=== PATIENT | male | born 1945 | race African-American/Black ===

== ENCOUNTER 2017-05-29 22:37 | Inpatient (IN) | payer SELFPAY ==
[2017-05-29] MEDS ORDERED: XOPENEX IH ONE ×2 (22:56→22:59)
[2017-05-29 23:12] LABS: Basophils % (Auto) 0.5 % (0.0-1.8); Eosinophils % (Auto) 5.3 % (0.0-4.3); Hematocrit 43.8 % (35.5-45.6); Hemoglobin 13.7 gm/dl (11.8-15.2); Mean Corpuscular HGB Conc 31 % (32-34); Platelet Count 202 K/mm3 (140-440); Red Cell Distribution Width 16.6 % (13.2-15.2); White Blood Count 11.3 K/mm3 (4.5-11.0)
[2017-05-29 23:16] LABS: Mean Corpuscular Hemoglobin 21 pg (28-32); Mean Corpuscular Volume 68 fl (84-94)
[2017-05-29] MEDS ORDERED: MAGNESIUM SULFATE 2GM/50ML 2 GM/50 ML BAG IV ONE (23:16)
[2017-05-29 23:22] LABS: INR 1.03 (0.87-1.13)
[2017-05-29 23:25] LABS: Creatine Kinase MB 20.2 ng/mL (0.0-4.0)
[2017-05-29 23:27] LABS: Alanine Aminotransferase 30 units/L (7-56); Albumin 4.3 g/dL (3.9-5); Albumin/Globulin Ratio 1.3 %; Alkaline Phosphatase 64 units/L (35-129); Anion Gap 17 mmol/L; BUN/Creatinine Ratio 15.71; Blood Urea Nitrogen 11 mg/dL (9-20); Calcium 8.9 mg/dL (8.4-10.2); Carbon Dioxide 29 mmol/L (22-30); Chloride 87.9 mmol/L (98-107); Creatine Kinase 516 units/L (55-170); Glucose 134 mg/dL (75-100); Potassium 4.1 mmol/L (3.6-5.0); Sodium 130 mmol/L (137-145); Total Protein 7.7 g/dL (6.3-8.2)
[2017-05-30] MEDS ORDERED: LOVENOX SUB-Q ONE (00:30)
[2017-05-30] MEDS ORDERED: XOPENEX IH ONE (00:55)
[2017-05-30] MEDS ORDERED: ATROVENT IH ONE (00:55)
--- NOTE | 2017-05-30 01:00 | Emergency Department Report ---
ED Shortness of Breath HPI - General Chief Complaint: Dyspnea/Respdistress Stated Complaint: MIK Time Seen by Provider: 05/29/17 22:53 Source: patient, EMS Mode of arrival: Stretcher Limitations: Language Barrier - History of Present Illness Initial Comments: 71-year-old male with no known past medical history presents last complaining of shortness of breath 1 month worsened today. Patient is a smoker but states he quit 2 days ago when symptoms worsened. Patient lives in [place] but he has been in the [place] area 1 month. Shortness of breath actually began prior to arrival to [place] 1 month ago that worsened over the last several days. Patient was actually at the airport preparing to fly out tonight, there was a 2 hour delay in patient's breathing worsened and therefore he came to the hospital. Patient received albuterol 10 mg and one 25 mg of Solu-Medrol prior to arrival with some improvement but continues to have audible wheezing upon arrival. Cough occasionally productive of phlegm reported. No chest pain, calf tenderness/edema, or fever reported. Denies any previously diagnosed heart problems. - Related Data Allergies Allergy/AdvReac Type Severity Reaction Status Date / Time No Known Allergies Allergy Unverified 05/29/17 23:10 ED Review of Systems ROS: Stated complaint: MIK Other details as noted in HPI Comment: All other systems reviewed and negative Other: Constitutional: No fevers chills Eyes: No eye pain visual changes ENT: No ear pain or throat pain Neck: Denies pain Respiratory: As per HPI Cardiovascular: Denies chest pain, palpitations, syncope GI: Denies abdominal pain, nausea, vomiting, diarrhea : Denies dysuria Musculoskeletal: Denies back pain Skin: Denies rash, lesions, erythema Neurologic: Denies headache, numbness, weakness Psychiatric: Denies suicidal ideation, hallucinations ED Past Medical Hx - Past Medical History Previous Medical History?: Yes Hx Heart Attack/AMI: Yes (States he does not know what heart disease) - Surgical History Past Surgical History?: No - Social History Smoking Status: Current Every Day Smoker ED Physical Exam - General Limitations: Language Barrier - Other Other exam information: General: No limitations, patient is alert in no acute distress Head exam: Atraumatic, normocephalic Eyes exam: Normal appearance, pupils equal reactive to light, extraocular movements intact ENT: Moist mucous membrane, normal oropharynx Neck exam: Normal inspection, full range of motion, no meningismus nontender Respiratory exam: Tachypnea, expiratory wheezing, no accessory muscle use Cardiovascular: Tachycardic irregular rhythm Abdomen: Soft, nondistended, and nontender, with normal bowel sounds, no rebound, or guarding Extremity: Full range of motion normal inspection no deformity, no calf tenderness or edema Back: Normal Inspection, full range of motion, no tenderness Neurologic: Alert, oriented x3, cranial nerves intact, no motor or sensory deficit Psychiatric: normal affect, normal mood Skin: Warm, dry, intact ED Course Vital Signs 05/29/17 05/29/17 05/29/17 22:42 22:50 23:00 Temperature Pulse Rate 126 H 109 H 122 H Pulse Rate [ Anterior Bilateral Throughout] Respiratory 31 H 30 H 32 H Rate Respiratory Rate [Anterior Bilateral Throughout] Blood Pressure 140/81 125/76 O2 Sat by Pulse 93 93 Oximetry 05/29/17 05/29/17 05/29/17 23:03 23:10 23:20 Temperature 98 F Pulse Rate 124 H 120 H Pulse Rate [ 131 H 124 H Anterior Bilateral Throughout] Respiratory 32 H 28 H Rate Respiratory 28 H 31 H Rate [Anterior Bilateral Throughout] Blood Pressure 125/76 134/68 O2 Sat by Pulse 93 96 Oximetry 05/29/17 05/29/17 05/29/17 23:30 23:40 23:50 Temperature Pulse Rate 141 H 146 H 131 H Pulse Rate [ Anterior Bilateral Throughout] Respiratory 17 22 16 Rate Respiratory Rate [Anterior Bilateral Throughout] Blood Pressure 125/76 125/76 90/41 O2 Sat by Pulse 93 92 92 Oximetry 05/30/17 05/30/17 05/30/17 00:00 00:10 00:11 Temperature Pulse Rate 130 H 160 H 123 H Pulse Rate [ Anterior Bilateral Throughout] Respiratory 19 26 H Rate Respiratory Rate [Anterior Bilateral Throughout] Blood Pressure 122/81 122/81 O2 Sat by Pulse 89 92 Oximetry 05/30/17 05/30/17 05/30/17 00:16 00:20 00:30 Temperature Pulse Rate 139 H 114 H 115 H Pulse Rate [ Anterior Bilateral Throughout] Respiratory 23 25 H 29 H Rate Respiratory Rate [Anterior Bilateral Throughout] Blood Pressure 132/78 132/78 121/69 O2 Sat by Pulse 91 92 98 Oximetry - Reevaluation(s) Reevaluation #1: 05/30/17 00:59 Patient had received a albuterol 10 mg, Solu-Medrol 125 mg, and Xopenex 2.5 prior to my evaluation with improvement but persistent wheezing ED Medical Decision Making - Lab Data Result diagrams: 05/29/17 23:00 05/29/17 23:00 Lab Results 05/29/17 05/29/17 05/29/17 Range/Units 23:00 23:00 23:00 WBC 11.3 H (4.5-11.0) K/mm3 RBC 6.40 H (3.65-5.03) M/mm3 Hgb 13.7 (11.8-15.2) gm/dl Hct 43.8 (35.5-45.6) % MCV 68 L (84-94) fl MCH 21 L (28-32) pg MCHC 31 L (32-34) % RDW 16.6 H (13.2-15.2) % Plt Count 202 (140-440) K/mm3 Lymph % (Auto) 18.7 (13.4-35.0) % [place] % (Auto) 10.4 H (0.0-7.3) % Eos % (Auto) 5.3 H (0.0-4.3) % Baso % (Auto) 0.5 (0.0-1.8) % Lymph # 2.1 (1.2-5.4) K/mm3 [place] # 1.2 H (0.0-0.8) K/mm3 Eos # 0.6 H (0.0-0.4) K/mm3 Baso # 0.1 (0.0-0.1) K/mm3 Seg Neutrophils % 65.1 (40.0-70.0) % Seg Neutrophils # 7.4 (1.8-7.7) K/mm3 PT 13.4 (12.2-14.9) Sec. INR 1.03 (0.87-1.13) Sodium 130 L (137-145) mmol/L Potassium 4.1 (3.6-5.0) mmol/L Chloride 87.9 L (98-107) mmol/L Carbon Dioxide 29 (22-30) mmol/L Anion Gap 17 mmol/L BUN 11 (9-20) mg/dL Creatinine 0.7 L (0.8-1.5) mg/dL Estimated GFR > 60 ml/min BUN/Creatinine Ratio 15.71 % Glucose 134 H (75-100) mg/dL Calcium 8.9 (8.4-10.2) mg/dL Total Bilirubin 0.50 (0.1-1.2) mg/dL AST 35 (5-40) units/L ALT 30 (7-56) units/L Alkaline Phosphatase 64 (35-129) units/L Total Creatine Kinase 516 H (55-170) units/L CK-MB (CK-2) Rel Index 3.9 (0-4) Troponin T < 0.010 (0.00-0.029) ng/mL Total Protein 7.7 (6.3-8.2) g/dL Albumin 4.3 (3.9-5) g/dL Albumin/Globulin Ratio 1.3 % ddimer neg - EKG Data -: EKG Interpreted by Me (A. fib rate 111, no ST elevation NE or T inversion) - EKG Data 05/30/17 01:00 repeat EKG shows A. fib rate 113 - Radiology Data Radiology results: image reviewed (chest x-ray: No acute finding) - Medical Decision Making Meds ordered in the ED: Xopenex, Atrovent, magnesium 2 g, azithromycin to cover for acute bronchitis/possible atypical pneumonia, and Lovenox 1 mg per KG subcutaneous for new onset A. fib. Patient will require admission to the hospital for the treatment of respiratory symptoms. ddimer negative - Differential Diagnosis new-onset A. fib, M a T, sinus tach, pneumonia, bronchitis, CHF Critical Care Time: No Critical care attestation.: If time is entered above; I have spent that time in minutes in the direct care of this critically ill patient, excluding procedure time. ED Disposition Clinical Impression: Acute bronchitis, Smoker, New onset a-fib, Hypoxia Disposition: OP ADMIT IP TO THIS HOSP Is pt being admited?: Yes Condition: Stable Time of Disposition: 01:05 (Dr Solano/hosp)
[2017-05-30] MEDS ORDERED: ZITHROMAX 500 MG in NACL 0.9% 250ML 250 ML IV ONE (01:03)
--- NOTE | 2017-05-30 01:25 | History and Physical Report ---
History of Present Illness Date of examination: 05/30/17 Date of admission: 05/30/17 Chief complaint: shortness of breath, wheezing History of present illness: Patient is 71 yo presents with shortness of breath, wheezing. He denies chest pain. He is diagnosed with acute bronchitis, hyponatremia. He does not have diagnosis of COPD but has smoked for 50 years so may have COPD. He was put on Oxygen and will admit for management. Past History Past Medical History: No medical history Past Surgical History: No surgical history Social history: no significant social history, smoking. denies: alcohol abuse Family history: no significant family history Medications and Allergies Allergies Allergy/AdvReac Type Severity Reaction Status Date / Time No Known Allergies Allergy Unverified 05/29/17 23:10 Active Meds: Active Medications Azithromycin 500 mg/ Sodium (Chloride) 250 mls @ 250 mls/hr IV ONCE.ED ONE Stop: 05/30/17 02:02 Review of Systems All systems: negative (No fever, no chest pain, no abd pain. All other systems reviewed and are negative) Exam - Physical Exam Narrative exam: Gen appearance: not in acute distress, lying in bed HEENT: normocephalic, atraumatic Neck:supple, no JVD, Lungs: Bilateral rhonchi, wheezing Heart :S1 and S2 regular, no murmurs, rubs or gallop Abdomen: Soft, non tender, normal bowel sounds Extremities :no edema no clubbing or cyanosis Neuro: Awake, alert oriented 3, normal speech,no focal neurological signs Psych: normal mood - Constitutional Vitals: Temp Pulse Resp BP Pulse Ox 98 F 113 H 18 124/70 96 05/29/17 23:10 05/30/17 01:10 05/30/17 01:20 05/30/17 01:10 05/30/17 01:20 Results - Labs CBC & Chem 7: 05/29/17 23:00 05/29/17 23:00 Labs: Abnormal lab results 05/29/17 05/29/17 Range/Units 23:00 23:00 WBC 11.3 H (4.5-11.0) K/mm3 RBC 6.40 H (3.65-5.03) M/mm3 MCV 68 L (84-94) fl MCH 21 L (28-32) pg MCHC 31 L (32-34) % RDW 16.6 H (13.2-15.2) % [place] % (Auto) 10.4 H (0.0-7.3) % Eos % (Auto) 5.3 H (0.0-4.3) % [place] # 1.2 H (0.0-0.8) K/mm3 Eos # 0.6 H (0.0-0.4) K/mm3 Sodium 130 L (137-145) mmol/L Chloride 87.9 L (98-107) mmol/L Creatinine 0.7 L (0.8-1.5) mg/dL Glucose 134 H (75-100) mg/dL Total Creatine Kinase 516 H (55-170) units/L Assessment and Plan Acute respiratory failure due to acute bronchitis and poss COPD(undiagnosed). Admit to tele. Oxygen supplementation. Resp assess and treat Acute bronchitis. solu-medrol, Duoneb Q 6h scheduled. Azithromycin Hyponatremia. Start iv fluid. Repeat BMP DVT prophylaxis with Lovenox Full code status.
[2017-05-30] MEDS ORDERED: DULCOLAX PR PRN (01:53)
[2017-05-30] MEDS ORDERED: TYLENOL PO PRN (01:53)
[2017-05-30] MEDS ORDERED: PROVENTIL IH PRN (01:53)
[2017-05-30] MEDS ORDERED: ZOFRAN IV PRN (01:53)
[2017-05-30] MEDS ORDERED: MILK OF MAGNESIA PO PRN (01:53)
[2017-05-30] MEDS ORDERED: MORPHINE IV PRN (01:53)
[2017-05-30] MEDS ORDERED: NACL 0.9% 1000 ML 1,000 ML IV SCH (02:00)
[2017-05-30] MEDS: CARDIZEM PO SCH ×5 (02:36→21:29)
[2017-05-30] MEDS: PULMICORT IH SCH ×3 (03:53→21:05)
[2017-05-30] MEDS: DUONEB *Not for PRN Use IH SCH ×4 (03:53→21:05)
--- NOTE | 2017-05-30 09:13 | XRay Report ---
Single view chest: History: Shortness of breath. Findings: Normal cardiomediastinal silhouette. Trachea is midline. No consolidation, pneumothorax or pleural effusion. Impression: No acute cardiopulmonary findings.
[2017-05-30 09:39] LABS: Anion Gap 18 mmol/L; BUN/Creatinine Ratio 14.28; Blood Urea Nitrogen 10 mg/dL (9-20); Calcium 8.9 mg/dL (8.4-10.2); Carbon Dioxide 30 mmol/L (22-30); Chloride 93.9 mmol/L (98-107); Glucose 171 mg/dL (75-100); Sodium 137 mmol/L (137-145)
[2017-05-30] MEDS ORDERED: COREG PO SCH (10:00)
[2017-05-30] MEDS ORDERED: LOVENOX SUB-Q SCH (10:00)
[2017-05-30] MEDS: LOVENOX SUB-Q SCH ×2 (11:20→21:27)
[2017-05-30] MEDS: ZITHROMAX PO SCH (11:22)
[2017-05-30] MEDS: PEPCID PO SCH ×2 (11:22→21:28)
--- NOTE | 2017-05-30 11:56 | Consultation ---
History of Present Illness Consult date: 05/30/17 Requesting physician: EVETTE AMADOR Consult reason: atrial fibrillation History of present illness: The patient presents with onset of shortness of breath yesterday as well as left facial numbness. He denies palpitations or dizziness. At presentation, he was noted to be in rapid atrial fibrillation. He has no prior history of such. His sodium level was 130 which has improved with IV fluids. His d-dimer level was unremarkable. Thyroid profile is normal. Past History Past Medical History: No medical history Past Surgical History: No surgical history Social history: (with no children), smoking. denies: alcohol abuse Family history: denies: CAD Medications and Allergies Allergies Allergy/AdvReac Type Severity Reaction Status Date / Time No Known Allergies Allergy Unverified 05/29/17 23:10 Active Meds: Active Medications Acetaminophen (Tylenol) 650 mg PO Q4H PRN PRN Reason: Pain MILD(1-3)/Fever >100.5/HENRY Albuterol (Proventil) 2.5 mg IH Q3HRT PRN PRN Reason: Shortness Of Breath Albuterol/Ipratropium (Duoneb *Not For Prn Use*) 1 ampul IH Q6HRT [facility] Last Admin: 05/30/17 07:53 Dose: 1 ampul Azithromycin (Zithromax) 500 mg PO QDAY [facility] Last Admin: 05/30/17 11:22 Dose: 500 mg Bisacodyl (Dulcolax) 10 mg OR QDAY PRN PRN Reason: Constipation unrelieved by MOM Budesonide (Pulmicort) 0.5 mg IH Q12HRT [facility] Last Admin: 05/30/17 07:53 Dose: 0.5 mg Carvedilol (Coreg) 3.125 mg PO BID [facility] Last Admin: 05/30/17 11:21 Dose: 3.125 mg Diltiazem HCl (Cardizem) 60 mg PO Q6H [facility] Last Admin: 05/30/17 11:21 Dose: 30 mg Enoxaparin Sodium (Lovenox) 70 mg 1 mg/kg (70 mg) SUB-Q Q12HR [facility] Last Admin: 05/30/17 11:20 Dose: 70 mg Famotidine (Pepcid) 20 mg PO BID [facility] Last Admin: 05/30/17 11:22 Dose: 20 mg Sodium Chloride (Nacl 0.9% 1000 Ml) 1,000 mls @ 75 mls/hr IV DIRECT [facility] Last Admin: 05/30/17 04:00 Dose: 75 mls/hr Magnesium Hydroxide (Milk Of Magnesia) 30 ml PO Q4H PRN PRN Reason: Constipation Methylprednisolone Sodium Succinate (Solu-Medrol) 80 mg IV Q8H [facility] Last Admin: 05/30/17 02:36 Dose: 80 mg Morphine Sulfate (Morphine) 2 mg IV Q4H PRN PRN Reason: Pain, Moderate (4-6) Last Admin: 05/30/17 09:13 Dose: 2 mg Ondansetron HCl (Zofran) 4 mg IV Q6H PRN PRN Reason: nausea or vomiting Last Admin: 05/30/17 09:13 Dose: 4 mg Review of Systems Constitutional: no fever, no chills Ears, nose, mouth and throat: no ear pain, no ear discharge, no sore throat Cardiovascular: shortness of breath, no chest pain, no orthopnea, no palpitations, no edema, no lightheadedness Respiratory: cough, shortness of breath, no hemoptysis Gastrointestinal: no abdominal pain, no nausea, no vomiting, no diarrhea, no constipation Genitourinary Male: no dysuria, no urinary frequency Rectal: no pain, no bleeding Musculoskeletal: no neck stiffness, no neck pain, no myalgias Integumentary: no rash, no pruritis Neurological: numbness, no weakness, no headaches Endocrine: no cold intolerance, no heat intolerance Hematologic/Lymphatic: no easy bruising, no easy bleeding Allergic/Immunologic: wheezing, no urticaria Physical Examination Vital Signs Last Vital Signs Temp 97.9 F 05/30/17 08:00 Pulse 106 H 05/30/17 08:00 Resp 20 05/30/17 08:00 BP 124/61 05/30/17 08:00 Pulse Ox 92 05/30/17 10:22 General appearance: no acute distress HEENT: Positive: EOMI, Normocephaly, Mucus Membranes Moist Neck: Positive: neck supple, trachea midline Cardiac: Positive: Reg Rate and Rhythm, S1/S2 Lungs: Positive: Wheezes, Rhonchi Neuro: Positive: Grossly Intact Abdomen: Positive: Soft, Active Bowel Sounds. Negative: Tender Skin: Positive: Clear. Negative: Rash Musculoskeletal: Normal Range of Motion Extremities: Present: normal. Absent: edema Results 05/29/17 23:00 05/30/17 09:11 Comprehensive Metabolic Panel 05/30/17 Range/Units 09:11 Sodium 137 D (137-145) mmol/L Potassium 5.0 D (3.6-5.0) mmol/L Chloride 93.9 L (98-107) mmol/L Carbon Dioxide 30 (22-30) mmol/L BUN 10 (9-20) mg/dL Creatinine 0.7 L (0.8-1.5) mg/dL Glucose 171 H (75-100) mg/dL Calcium 8.9 (8.4-10.2) mg/dL - Imaging and Cardiology EKG: image reviewed EKG interpretations - Telemetry EKG Rhythm: Atrial Fibrillation (with RVR) - EKG Supraventricular dysrhythmia: atrial fibrillation Assessment and Plan Agree with Lee. I will try oral amiodarone for possible cardioversion. Parenteral anticoagulation for now. Obtain echocardiogram. - Patient Problems (1) Atrial fibrillation with rapid ventricular response Current Visit: Yes Status: Acute (2) New onset a-fib Current Visit: Yes Status: Acute (3) Acute bronchitis Current Visit: Yes Status: Acute Qualifiers: Bronchitis organism: B (4) Tobacco abuse Current Visit: Yes Status: Chronic
[2017-05-30] MEDS ORDERED: CORDARONE 150 MG in D5W 97 ML IV ONE (12:00)
--- NOTE | 2017-05-30 13:23 | Event Note ---
Date: 05/30/17 pt seen and examined. admitted this am with SOB and atrial fib. Will cont current Mx as dictated in H and P. started on amioderone drip to better control HR, will also increase the dose of cardizem and will add coreg. Will also reduce the dose of steroid.
[2017-05-30] MEDS: CORDARONE PO SCH ×3 (16:33→21:28)
[2017-05-31] MEDS: DUONEB *Not for PRN Use IH SCH ×4 (02:20→20:28)
[2017-05-31] MEDS: CARDIZEM PO SCH ×4 (05:57→22:29)
[2017-05-31] MEDS: PULMICORT IH SCH ×2 (08:42→20:28)
[2017-05-31] MEDS: LOVENOX SUB-Q SCH ×2 (10:24→21:18)
[2017-05-31] MEDS: PEPCID PO SCH ×2 (10:25→21:17)
[2017-05-31] MEDS: CORDARONE PO SCH ×3 (10:25→21:16)
[2017-05-31] MEDS: ZITHROMAX PO SCH (10:25)
--- NOTE | 2017-05-31 12:41 | Progress Note ---
Assessment and Plan Continue loading dose of amiodarone for now with the hope of possible pharmacologic cardioversion. Await echocardiogram. - Patient Problems (1) Atrial fibrillation with rapid ventricular response Current Visit: Yes Status: Acute (2) New onset a-fib Current Visit: Yes Status: Acute (3) Acute bronchitis Current Visit: Yes Status: Acute Qualifiers: Bronchitis organism: B (4) Tobacco abuse Current Visit: Yes Status: Chronic Subjective Date of service: 05/31/17 Principal diagnosis: New onset Afib with RVR, Acute bronchitis Interval history: He feels better today. He is now in atrial fibrillation with a controlled ventricular rate. Objective Vital Signs Last Vital Signs Temp 97.3 F L 05/31/17 05:08 Pulse 89 05/31/17 10:24 Resp 20 05/31/17 05:08 BP 110/58 05/31/17 10:24 Pulse Ox 88 05/31/17 10:00 - Physical Examination General: No Apparent Distress HEENT: Positive: EOMI, Normocephaly, Mucus Membranes Moist Neck: Positive: neck supple, trachea midline Cardiac: Positive: Irregularly Regular, S1/S2 Lungs: Positive: clear to auscultation Neuro: Positive: Grossly Intact Abdomen: Positive: Soft, Active Bowel Sounds. Negative: Tender Skin: Positive: Clear. Negative: Rash Musculoskeletal: Normal Range of Motion Extremities: Present: normal. Absent: edema - Imaging and Cardiology EKG: image reviewed
--- NOTE | 2017-05-31 14:55 | Progress Note ---
Assessment and Plan Acute respiratory failure - likely due to acute bronchitis and asthma exacerbation. - cont Oxygen supplementation. - increase the dose of solu-medrol, Duoneb Q 6h scheduled. - pt still symptomatic, will change abx to ceftriaxone Acute asthma exacerbation -solu-medrol, Duoneb Q 6h scheduled. - cont abx with ceftriaxone Hyponatremia. cont iv fluid. Atrial Fib with RVR - started on amioderone - cont cardizem - wait for 2d echo result - cont therapeutic dose of lovenox DVT prophylaxis with Lovenox Full code status. Subjective Date of service: 05/31/17 Principal diagnosis: New onset Afib with RVR, Acute bronchitis Interval history: Pt seen and examined c/o SOB and wheezing HR better controlled today Objective - Constitutional Vitals: Vital Signs - 12hr 05/31/17 05/31/17 05/31/17 05:08 05:57 08:42 Temperature 97.3 F L Pulse Rate 92 H 98 H Pulse Rate [ 83 Anterior Bilateral Throughout] Pulse Rate [ Right Radial] Respiratory 20 Rate Respiratory 20 Rate [Anterior Bilateral Throughout] Blood Pressure 102/59 O2 Sat by Pulse 91 94 Oximetry 05/31/17 05/31/17 05/31/17 08:52 10:00 10:24 Temperature Pulse Rate 82 89 Pulse Rate [ 88 Anterior Bilateral Throughout] Pulse Rate [ 89 Right Radial] Respiratory Rate Respiratory 20 Rate [Anterior Bilateral Throughout] Blood Pressure 110/58 O2 Sat by Pulse 88 Oximetry 05/31/17 05/31/17 05/31/17 14:07 14:17 14:46 Temperature Pulse Rate 88 Pulse Rate [ 82 80 Anterior Bilateral Throughout] Pulse Rate [ Right Radial] Respiratory 20 Rate Respiratory 20 20 Rate [Anterior Bilateral Throughout] Blood Pressure 125/63 O2 Sat by Pulse 94 Oximetry General appearance: Present: no acute distress, well-nourished - EENT Eyes: PERRL, EOM intact ENT: hearing intact, clear oral mucosa Ears: bilateral: normal - Neck Neck: supple, normal ROM - Respiratory Respiratory effort: normal Respiratory: bilateral: wheezing - Cardiovascular Heart Sounds: Present: S1 & S2. Absent: gallop, rub Extremities: pulses intact, No edema, normal color, Full ROM - Gastrointestinal General gastrointestinal: Present: soft, non-tender, non-distended, normal bowel sounds - Integumentary Integumentary: clear, warm, dry - Musculoskeletal Musculoskeletal: 1, strength equal bilaterally - Neurologic Neurologic: moves all extremities - Psychiatric Psychiatric: memory intact, appropriate mood/affect, intact judgment & insight - Labs CBC & Chem 7: 05/29/17 23:00 05/30/17 09:11 - Imaging and cardiology Chest x-ray: report reviewed
[2017-05-31] MEDS: ROCEPHIN/NS 1 GM/50 ML 1 GM/50 ML BAG IV SCH (15:53)
--- NOTE | 2017-06-01 01:56 | Admit Criteria Form ---
Admission Criteria Documentation: ATRIAL FIBRILLATION Clinical Indications for Admission to Inpatient Care (sun'aq/check or initial the applicable condition/criteria) Admission is indicated for ANY ONE of the following(1)(2)(3)(4)(5)(6)(7)(8): [ ]I. Myocardial ischemia that persists despite outpatient and observation care treatment (13) [ ]II. Myocardial infarction [ ]III. Hemodynamic instability [ ]IV. Heart failure (e.g., pulmonary edema) (14) [ ]V. Altered mental status that is severe or persistent complications secondary to comorbidities (eg, symptomatic heart failure) [ ]. Syncope [ ]VII. Patient has implantable cardioverter defibrillator that has fired more than once within past 24hror needs immediate adjustment of settings that cannot be done other than in inpatient setting. (15) [ ]VIII. Suspected accessory pathway (e.g., [id number]-Cjtfv syndrome) on ECG [ ]IX. Medication toxicity (e.g., digitalis) causing arrhythmia(16) [ ]X. Underlying medical condition that necessitates inpatient care(e.g., thyrotoxicosis, pneumonia)(17) [ ]XI. Continuous ECG monitoring is required for condition causing arrhythmia (e.g., severe hyperkalemia, hypokalemia, acid-base disturbance)(18)(19)(20) [ ]XII. Initiation of antiarrhythmic drug therapy is needed in patient at high risk of adverse effects as indicated by ANY ONE of the following: [ ]a) Significant structural heart disease (e.g., reduced ejection fraction, congenital heart disease, valvular heart disease) [ ]b) Prolonged QT interval [ ]c) Underlying sinus node or atrioventricular conduction disturbances [ ]d) Need for treatment with antiarrhythmic drugs that have significant proarrhythmic potential (e.g., dofetilide, sotalol, procainamide) [ ]e) Patient whose sinus rhythm has never been observed on ECG [X]XIII. Persistent symptomatic tachycardia (rate > 100 bpm) despite outpatient and observation level of care (eg, rate cannot be sufficiently controlled [ ]XIV. Elective or urgent cardioversion that cannot be performed on outpatient basis or during observation care. [A] (Use also A Fib: Observation Care ) as appropriate.(21)(22)(23) Extended stay beyond goal length of stay may be needed for (1)(43)(44): [ ]a) Unstable comorbidities (eg, heart failure, COPD, renal insuffciency) [ ]b) Persistently uncontrolled atrial fibrillation or other arrhythmias (45) [ ]c) Acute thromboembolic event (e.g., stroke, limb ischemia) [ ]d) Need for inpatient attainment of full anticoagulation(28)(46)(47) The original [employer] content created by [employer] has been revised. The portions of the content which have been revised are identified through the use of italic text or in bold, and [facility] has neither reviewed nor approved the modified material. All other unmodified content is copyright [facility]. Please see references footnoted in the original [facility] edition 2017 Admission Criteria Met: Yes
[2017-06-01 02:06] LABS: Hematocrit 40.7 % (35.5-45.6); Hemoglobin 12.6 gm/dl (11.8-15.2); Mean Corpuscular HGB Conc 31 % (32-34); Platelet Count 199 K/mm3 (140-440); Red Blood Count 5.94 M/mm3 (3.65-5.03); Red Cell Distribution Width 17.2 % (13.2-15.2); White Blood Count 15.7 K/mm3 (4.5-11.0)
[2017-06-01 02:13] LABS: Mean Corpuscular Hemoglobin 21 pg (28-32); Mean Corpuscular Volume 69 fl (84-94)
[2017-06-01 02:28] LABS: Anion Gap 16 mmol/L; Blood Urea Nitrogen 22 mg/dL (9-20); Calcium 9.3 mg/dL (8.4-10.2); Carbon Dioxide 30 mmol/L (22-30); Chloride 88.4 mmol/L (98-107); Glucose 198 mg/dL (75-100); Potassium 5.4 mmol/L (3.6-5.0); Sodium 129 mmol/L (137-145)
[2017-06-01] MEDS: DUONEB *Not for PRN Use IH SCH ×3 (03:04→13:40)
[2017-06-01] MEDS: CARDIZEM PO SCH ×3 (04:20→17:53)
[2017-06-01] MEDS: PULMICORT IH SCH (07:56)
[2017-06-01] MEDS: CORDARONE PO SCH ×2 (08:39→14:26)
[2017-06-01] MEDS: ROCEPHIN/NS 1 GM/50 ML 1 GM/50 ML BAG IV SCH (09:28)
[2017-06-01] MEDS: LOVENOX SUB-Q SCH (09:28)
[2017-06-01] MEDS: PEPCID PO SCH (09:28)
[2017-06-01] MEDS ORDERED: ELIQUIS PO SCH (13:00)
--- NOTE | 2017-06-01 13:59 | Progress Note ---
Assessment and Plan Rate is better controlled and overall patient is doing better and anxious to go home. Electrolyte imbalance is noted and hence we will continue monitoring. Patient is on anticoagulations. Continue current management. Discussed with - Patient Problems (1) Acute bronchitis Current Visit: Yes Status: Acute Qualifiers: Bronchitis organism: B (2) Atrial fibrillation with rapid ventricular response Current Visit: Yes Status: Acute Subjective Date of service: 06/01/17 Principal diagnosis: New onset Afib with RVR, Acute bronchitis Interval history: Patient is feeling better and the heart rate is better controlled. No significant cardiac symptoms Objective Vital Signs Temp Pulse Pulse Pulse Resp Resp Resp 06/01/17 13:40 98 H 18 06/01/17 12:35 22 06/01/17 12:06 98.6 F 79 20 06/01/17 09:49 98.6 F 75 18 06/01/17 09:31 87 06/01/17 08:23 75 18 06/01/17 08:15 97.6 F 87 27 H 06/01/17 07:59 06/01/17 07:56 75 18 06/01/17 04:20 87 06/01/17 03:11 98.0 F 79 20 06/01/17 03:10 81 18 06/01/17 03:01 76 22 05/31/17 22:29 88 05/31/17 22:00 88 05/31/17 21:39 88 05/31/17 21:29 22 05/31/17 21:12 98.2 F 96 H 20 05/31/17 20:37 05/31/17 20:32 80 22 05/31/17 20:20 77 20 05/31/17 17:33 97.9 F 81 20 05/31/17 15:53 88 05/31/17 14:46 88 20 05/31/17 14:17 80 20 05/31/17 14:07 82 20 BP Pulse Ox 06/01/17 13:40 06/01/17 12:35 06/01/17 12:06 127/58 93 06/01/17 09:49 113/56 95 06/01/17 09:31 127/63 06/01/17 08:23 06/01/17 08:15 127/63 96 06/01/17 07:59 95 06/01/17 07:56 06/01/17 04:20 127/63 06/01/17 03:11 124/58 92 06/01/17 03:10 06/01/17 03:01 05/31/17 22:29 120/59 05/31/17 22:00 05/31/17 21:39 05/31/17 21:29 05/31/17 21:12 120/57 95 05/31/17 20:37 95 05/31/17 20:32 05/31/17 20:20 05/31/17 17:33 132/63 98 05/31/17 15:53 125/63 05/31/17 14:46 125/63 94 05/31/17 14:17 05/31/17 14:07 - Physical Examination General: No Apparent Distress HEENT: Positive: EOMI, Normocephaly, Mucus Membranes Moist Neck: Positive: neck supple, trachea midline Neuro: Positive: Grossly Intact Abdomen: Positive: Soft, Active Bowel Sounds. Negative: Tender Skin: Positive: Clear. Negative: Rash Musculoskeletal: Normal Range of Motion Extremities: Present: normal. Absent: edema - Labs and Meds CBC 06/01/17 Range/Units 01:46 WBC 15.7 H (4.5-11.0) K/mm3 RBC 5.94 H (3.65-5.03) M/mm3 Hgb 12.6 (11.8-15.2) gm/dl Hct 40.7 (35.5-45.6) % Plt Count 199 (140-440) K/mm3 Comprehensive Metabolic Panel 06/01/17 Range/Units 01:46 Sodium 129 L D (137-145) mmol/L Potassium 5.4 H (3.6-5.0) mmol/L Chloride 88.4 L (98-107) mmol/L Carbon Dioxide 30 (22-30) mmol/L BUN 22 H (9-20) mg/dL Creatinine 0.8 (0.8-1.5) mg/dL Glucose 198 H (75-100) mg/dL Calcium 9.3 (8.4-10.2) mg/dL - Imaging and Cardiology EKG: image reviewed
[2017-06-01] MEDS ORDERED: KIONEX PO PRN (15:00)
--- NOTE | 2017-06-01 15:07 | Discharge Summary ---
Providers - Providers Date of Admission: 05/30/17 01:53 Date of discharge: 06/01/17 Attending physician: SAMEERA SOARES Primary care physician: EVETTE AMADOR Hospitalization Condition: Stable Pertinent studies: CXR - no infiltrates 2d echo: EF 55% Hospital course: Patient is 71 yo male with h/o tobacco abuse presented to the ER with shortness of breath, wheezing. He noted to have hyponatremia and Atrial fibrillation with RVR. He was put on Oxygen, cardizem, therapeutic dose of lovenox and was admitted for further management. Discharge diagnosis and management: Acute respiratory failure - likely due to acute bronchitis and asthma exacerbation. - continued with Oxygen supplementation, iv solu-medrol, IV abx and Duoneb Q 6h scheduled. - patient improved clinically before discharge - he was discharged with oral steroid, inhaler and antibiotics to complete the course Acute asthma exacerbation - placed on iv solu-medrol, IV abx and Duoneb Q 6h scheduled - resolved Hyponatremia. improved with iv fluid. hyperkalemia, s/p kayexalate, resolved Atrial Fib with RVR - started on amioderone and cardizem for rate control - 2d echo showed preserved EF - Initially on therapeutic dose of lovenox, then placed on eliquis Disposition: DC-01 TO HOME OR SELFCARE Time spent for discharge: 32 minutes Core Measure Documentation - Palliative Care Palliative Care/ Comfort Measures: Not Applicable - Core Measures Any of the following diagnoses?: none Exam - Constitutional Vitals: Temp Pulse Resp BP Pulse Ox 98.6 F 78 18 127/58 93 06/01/17 12:06 06/01/17 13:59 06/01/17 13:59 06/01/17 12:06 06/01/17 12:06 General appearance: Present: no acute distress, well-nourished - EENT Eyes: Present: PERRL ENT: hearing intact, clear oral mucosa - Neck Neck: Present: supple, normal ROM - Respiratory Respiratory effort: normal Respiratory: bilateral: CTA - Cardiovascular Heart Sounds: Present: S1 & S2. Absent: rub, click - Extremities Extremities: pulses symmetrical, No edema Peripheral Pulses: within normal limits - Abdominal General gastrointestinal: Present: soft, non-tender, non-distended, normal bowel sounds - Integumentary Integumentary: Present: clear, warm, dry - Musculoskeletal Musculoskeletal: gait normal, strength equal bilaterally - Psychiatric Psychiatric: appropriate mood/affect, intact judgment & insight - Neurologic Neurologic: CNII-XII intact, moves all extremities Plan Activity: advance as tolerated Weight Bearing Status: Weight Bear as Tolerated Diet: low fat, low salt Additional Instructions: 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 Follow up with: PRIMARY CARE, [Referring] - 3-5 Days Prescriptions: ALBUTEROL Inhaler [Proair] 2 puff IH QID PRN 30 Days PRN Reason: Shortness Of Breath Amiodarone [Cordarone 200 MG TAB] 400 mg PO TID #90 tablet Apixaban [Eliquis] 5 mg PO Q12HR #60 tablet Diltiazem [Cardizem] 60 mg PO Q6H #120 tablet Levofloxacin [Levaquin TAB] 500 mg PO QDAY #5 tablet predniSONE [Deltasone] 50 mg PO QDAY #5 tab
[2017-06-01 15:56] LABS: Anion Gap 21 mmol/L; BUN/Creatinine Ratio 23.33; Blood Urea Nitrogen 21 mg/dL (9-20); Carbon Dioxide 26 mmol/L (22-30); Chloride 90.8 mmol/L (98-107); Glucose 244 mg/dL (75-100); Potassium 4.6 mmol/L (3.6-5.0); Sodium 133 mmol/L (137-145)
[2017-06-01 17:54] VITALS: BP 167/82
== END 2017-06-01 18:50 | disposition home or self-care (01) | DRG 189 ==
LOC: ED 22:37 → 4A 05-30 01:53
PROVIDERS: ADMIT Internal Medicine; ATTEND Internal Medicine
DX: J96.01 Acute respiratory failure with hypoxia (principal); J45.901 Unspecified asthma with (acute) exacerbation; E87.1 Hypo-osmolality and hyponatremia; J20.9 Acute bronchitis, unspecified; I48.91 Unspecified atrial fibrillation; F17.210 Nicotine dependence, cigarettes, uncomplicated; F41.9 Anxiety disorder, unspecified; E87.5 Hyperkalemia
CPT/HCPCS: 36415; 71010; 80048; 80053; 82550; 82553; 83036; 83880; 84439; 84443; 84484; 85025; 85027; 85379; 85610; 93005; 93010; 93306; 94640; 94760; 96365; 96372; 96375; J0282; J0456; J0696; J1650; J2270; J2405; J2920; J2930; J3475; J7030; J7050